=== PATIENT | female | born 1970 | race Caucasian/White ===

== ENCOUNTER 2023-09-13 22:31 | Emergency (ER) | payer OTHER, SELFPAY ==
[2023-09-13 22:34] VITALS: BP 133/71
--- NOTE | 2023-09-13 23:06 | ED.GENMED ---
History of Present Illness
General
Chief Complaint: Abdominal Pain
Source: patient
Exam Limitations: none
Time Seen by Provider: 09/13/23 22:44
History of Present Illness
History of Present Illness:
This is a 53 year old female that comes in with c/o lower abd pain. States that for the past 2 weeks she has had lower abd pain. States that it was slight on the right at first and now it is more on the left. States that today her pain got worse on
the left sided so she came in. Denies any fever, chills, chest pain, SOB, nausea, vomiting, diarrhea, headache, dizziness, urinary burning.
Past History
Past History
ED Past Medical History: Cancer (Skin CA, ), Psychiatric (Anxiety, Bipolar, Depression) and Other (PE/DVT, Ovarian cyst, Fibroids)
ED Past Surgical History: Gynecological (Hysterectomy), Orthopedic (Bunionectomy) and Other (Deviated septum, Mohs on face, )
Social History
Tobacco: Non-smoker
Alcohol: None
Personal:
Living: with family
Review of Systems
Review of Systems
All Other Systems: ROS reviewed and negative except as documented in HPI and ROS
Constitutional: Reports no symptoms; Denies fever or chills
EENT: Reports no symptoms
Respiratory: Reports no symptoms; Denies cough or trouble breathing
Cardiac: Reports no symptoms; Denies chest pain
ABD/GI: Reports abdominal pain; Denies nausea, vomiting or diarrhea
: Reports no symptoms; Denies dysuria, frequency or urgency
Musculoskeletal: Reports no symptoms
Skin: Reports no symptoms
Neurological: Reports no symptoms; Denies dizzy or headache
Psychiatric: Reports no symptoms
Phy Exam
General Physical Exam
General Presentation: well appearing and no apparent distress
General age: appears stated age
General Skin: warm and dry
General Habitus: normal
General Mental: alert
General Hydration: appears well hydrated
ENT Exam
ENT Exam: TM's normal, pharynx normal and neck supple
Eye Exam
Eye Exam: EOMI
Cardiovascular Exam
Cardiovascular Exam: regular rate/rhythm, no edema, no murmur and normal peripheral pulses
Pulmonary Exam
Pulmonary Exam: lungs clear, no respiratory distress, no rales, chest non tender, no crackles, no rhonchi, no wheezing and no cough
Gastrointestinal Exam
Gastrointestinal Exam: normal bowel sounds, soft, no organomegaly, no pulsatile mass, non distended and tender (Very slight left lower abd tenderness with palpation)
Musculoskeletal Exam
Musculoskeletal Exam: full ROM and no edema
Skin Exam
Skin Exam: normal color, warm/dry, no rash and no petechia
Psychiatric Exam
Psychiatric Exam: normal mood/affect
Course
Orders/Labs/Results
Orders:
Orders
09/13/23 23:03
0.9% Sodium Chloride 1000 ml [Nss] 1,000 ml IV BOLUS
Test Result ONCE
US Pelvis W Transvag Combined Urgent
Comment: Hysterectomy
Reason For Exam: Left sided abd pain
09/13/23 23:24
Complete Blood Count/With Diff Urgent
Comprehensive Metabolic Panel Urgent
HCG, Serum Qualitative Screen Urgent
Urinalysis Reflex To Culture Urgent
Date Specimen was Collected: 09/13/23
Time Specimen was Collected: 23:07
Urine Microscopic Reflex Cult Urgent
Urine Culture Urgent
EMELINA Source: U
Specimen Description:
Date Specimen was Collected: 09/13/23
Time Specimen was Collected: 23:07
09/14/23 00:22
CT Abd/pelvis W Iv Cont Urgent
Comment:
Reason For Exam: left sided lower abd pain
Abnormal Lab Results
09/13/23
23:24
Hct 36.8 L %
(37.0-47.0)
Absolute Lymphs (auto) 3.6 H 10^3/uL
(1.2-3.4)
Neutrophils % 39.7 L %
(42.2-75.2)
BUN 20 H mg/dl
(7-17)
Glucose 131 H mg/dl
(70-99)
ALT 37 H U/L
(0-35)
Ur Occult Blood Reflex 1+ A
(Negative)
Leukocyte Esterase Rfl 1+ A
(Negative)
Urine RBC 3-6 A /HPF
(0-2)
Urine WBC (Reflex) 11-15 A /HPF
(0-5)
Urine Bacteria (Reflex) Many A
(Negative)
09/13/23 23:24
09/13/23 23:24
Slight Dehydration. Glucose nonfasting. ALT slightly elevated. HCG negative. Urine questionable for infection.
Vital Signs
Initial and Last Documented VS:
Initial Vital Signs
Temp Pulse Resp BP Pulse Ox
97.8 F 87 16 133/71 95
09/13/23 22:34 09/13/23 22:34 09/13/23 22:34 09/13/23 22:34 09/13/23 22:34
Last Documented Vital Signs
Temp Pulse Resp BP Pulse Ox
97.8 F 87 16 133/71 95
09/13/23 22:34 09/13/23 22:34 09/13/23 22:34 09/13/23 22:34 09/13/23 22:34
MDM/Problems Addressed
Differential Diagnosis Includes:
Ovarian cyst, Diverticulitis, Renal calculus
MDM/Problems Addressed:
This is a 53 year old female that comes in with c/o lower abd discomfort. States that this started about 2 weeks ago and today it was worse so she came in. States that it does comes and go.
Will get labs, US and if nothing found will get CT scan.
Back into see patient again. Explained that her US earlier did not see any ovaries. CT is also negative for any acute process. This may be coming form her back or this may be a UTi but her urine has greater then 30 Squamous Epith cells. Will treat
for UTI with Monurol and have patient increase her water intake. Follow up with the family doctor. Return with any concerns.
Chronic conditions affecting care:
NA
Acute Exacerbation and/or Progression of Chronic Illness:
NA
*Radiology
Radiology exam reviewed: radiology read reviewed (US night hawk-Status post hysterectomy.. Unable to identify ovaries. CT night hawk- No acute abnormality within the abdomen or pelvis. No bowel obstruction. Normal gallbladder, appendix.
Incidentals: Moderate stool burden. NO obstructive uropathy. No hepatic or pancreatic mass. No abdominal .) and all reviewed NAD by ED Provider (CT cont- no abd aortic aneurysm. NO acute osseous abnormality. NO acute abnormality within the
visualized lungs. No acute abnormality within the visualized soft tissues. )
*Pulse Oximetry
Patient hypoxic: no
*EKG
Interpreted by ED Provider?: NA
Rate: EKG- N/A
*Aluminum Welder Interpretation
Rate: Aluminum Welder- N/A
*Critical Care Note
Total Time (30-74mins, 75-104mins- exclusive of procedures): Not Applicable
ED Attending Note
-
Portions of this chart may have been created with voice recognition software.� Occasional wrong word or��sound alike� substitutions may have occurred due to the inherent limitations of voice recognition software.
Discharge Plan
Departure
Patient Disposition: Home (Routine Discharge)
Date of Disposition: 09/14/23
Time of Disposition: 01:33
Patient with high blood pressure during this ER visit?: Yes
Condition: Good
Covid-19: Not Applicable
Discharge Problem:
Questionable Urinary tract infection
Instructions: Urinary Tract Infection, Adult ED, BLOOD PRESSURE
Referrals:
MarjorieMarv MD [Family Provider] - Call in 1-3 days for appt
Activity Restrictions/Additional Instructions:
As discussed, your blood work shows very slight Dehydration. Your Urine is questionable for infection. Your Ultrasound was unable to see your ovaries and your CT scan is negative for any acute process. Please increase your water intake to 8-8oz
glasses daily. You have been given a one time dose to treat a UTI. Please follow up with the family doctor for recheck. You may use Tylenol or Ibuprofen for any pain. IF YOU HAVE ANY OTHER CONCERNS PLEASE RETURN TO THE EMERGENCY ROOM.
Interventions
Interventions:
*Risk Screen - Suicide Last Done: 09/13/23 22:34
*General Assessment Last Done: 09/13/23 22:34
*Neglect/Abuse Screening Last Done: 09/13/23 22:34
ED- Fall Risk Assessment Last Done: 09/13/23 22:34
*ED COVID-19 Vaccine History Last Done: 09/13/23 22:34
Discharge Date and Time
Print Language: KAZAKH
[2023-09-13] MEDS: NSS 1000 IV (23:25)
[2023-09-13 23:32] LABS: Urine Albumin Negative (Neg - Trace); Urine Bilirubin Negative (Negative); Urine Character Slightly Cloudy (Clear); Urine Color Yellow; Urine Glucose Negative (Negative); Urine Ketone Negative (Negative); Urine Leukocyte 1+ (Negative); Urine Nitrite Negative (Negative); Urine Occult Blood 1+ (Negative); Urine Urobilinogen Negative (Neg - 1+)
[2023-09-13 23:38] LABS: % Basophils 0.6 % (0-2); % Eosinophils 1.2 % (0-6); % Immature Granulocytes 0.3 % (0-0.5); % Lymphocytes 49.5 % (20.5-51.1); % Monocytes 8.7 % (1.7-9.3); % Neutrophils 39.7 % (42.2-75.2); Absolute Eosinophils 0.1 10^3/uL (0-0.7); Absolute Lymphocytes 3.6 10^3/uL (1.2-3.4); Absolute Monocytes 0.6 10^3/uL (0.1-0.6); Absolute Neutrophils 2.9 10^3/uL (1.4-6.5); Hematocrit 36.8 % (37.0-47.0); Hemoglobin 12.7 g/dL (12.0-16.0); Mean Corp Hgb Conc. 34.5 g/dL (33.0-37.0); Mean Corpuscular Hgb 29.7 pg (27.0-31.0); Mean Platelet Volume 9.9 fL (7.4-10.4); Nucleated Red Blood Cells % 0 %; Platelet Count 237 10^3/uL (130-400); Red Blood Cell Count 4.28 10^6/uL (4.20-5.40); Red Cell Dist. Width 12.4 % (11.5-14.5); White Blood Cell Count 7.2 10^3/uL (4.8-10.8)
[2023-09-13 23:42] LABS: HCG, Serum Qualitative Screen Negative
[2023-09-13 23:48] LABS: ALT (SGPT) 37 U/L (0-35); AST (SGOT) 27 U/L (14-36); Albumin 4.5 g/dl (3.5-5.0); Alkaline Phosphatase 83 U/L (38-126); Blood Urea Nitrogen 20 mg/dl (7-17); Calcium 9.5 mg/dl (8.4-10.2); Carbon Dioxide 27 mmol/L (22-30); Chloride 105 mmol/L (98-107); Glucose 131 mg/dl (70-99); Sodium 140 mmol/L (135-145); Total Bilirubin 0.4 mg/dl (0.2-1.3); Total Protein 7.3 g/dl (6.3-8.2); eGFR > 60.00
[2023-09-14 00:15] LABS: Urine Bacteria Many (Negative); Urine Squamous Cell >30 /LPF (Few)
[2023-09-14 00:16] LABS: Urine Granular Cast 0-2 /LPF (0)
[2023-09-14] MEDS: TORADOL 30 MG IV (01:28)
[2023-09-14 01:30] VITALS: BP 117/57
[2023-09-14] MEDS: MONUROL 3 GM PO (01:48)
== END 2023-09-14 01:45 | disposition home or self-care (01) ==
LOC: EMR 22:31
PROVIDERS: Clinical Nurse Specialist Family Health; EMERGENCY PHYSICIAN Emergency Medicine; FAMILY PHYSICIAN Internal Medicine
DX: R10.31 Right lower quadrant pain (principal); R10.32 Left lower quadrant pain; F31.9 Bipolar disorder, unspecified; F41.9 Anxiety disorder, unspecified; Z85.828 Personal history of other malignant neoplasm of skin; Z86.711 Personal history of pulmonary embolism; Z86.718 Personal history of other venous thrombosis and embolism
CPT/HCPCS: 99285; 96374; 96361; 74177; 76830; 76856; 80053; 81003; 81015; 84703; 85025; 87086; Q9967